=== PATIENT | female | born 1965 | race Caucasian/White ===

== ENCOUNTER 2023-03-20 23:15 | Emergency (ER) | payer OTHER ==
[2023-03-20 23:32] VITALS: BMI 25.6
[2023-03-21 01:25] LABS: BASO % 0.4 % (0-2.0); EOS % 1.7 % (0-4.5); HEMATOCRIT 41.8 % (32.4-45.2); HEMOGLOBIN 14.2 GM/dL (10.7-15.3); LYMPH % 44.5 % (8-40); MCHC 33.9 g/dl (32.0-36.0); MEAN CELL VOLUME 85.6 fl (80-96); MEAN PLT VOLUME 8.2 fl (7.5-11.1); MONO % 7.3 % (3.8-10.2); NEUT % 46.1 % (42.8-82.8); PLATELET COUNT 348 10^3/uL (134-434); RBC 4.89 M/mm3 (3.60-5.2); RDW 13.8 % (11.6-15.6); WHITE BLOOD COUNT 9.9 K/mm3 (4.0-10.0)
[2023-03-21 01:32] LABS: INR 0.98 (0.83-1.09); PROTHROMBIN TIME (PATIENT) 11.4 SEC (9.7-13.0)
[2023-03-21 01:44] LABS: POTASSIUM 3.8 mmol/L (3.5-5.1)
[2023-03-21 01:47] LABS: CALCIUM 9.5 mg/dL (8.5-10.1)
[2023-03-21 01:48] LABS: ALBUMIN 3.6 g/dl (3.4-5.0); BLOOD UREA NITROGEN 17.2 mg/dL (7-18)
[2023-03-21 01:51] LABS: CREATININE 0.9 mg/dL (0.55-1.3)
[2023-03-21 01:53] LABS: BILIRUBIN,TOTAL 0.4 mg/dL (0.2-1)
[2023-03-21 03:24] VITALS: BP 113/75; PULSE 54; RESP 18; TEMP 97.6
== END 2023-03-21 05:15 | disposition home or self-care (01) ==
LOC: JER 23:15
DX: I10 Essential (primary) hypertension (principal); R07.9 Chest pain, unspecified; Z20.822 Contact with and (suspected) exposure to COVID-19
CPT/HCPCS: 0241U-QW; 36415; 71045-TC-FY; 80053; 84484; 85025; 85379; 85610; 85730; 93005; 93010; 99285-25